=== PATIENT | male | born 1945 | race Caucasian/White ===

== ENCOUNTER → 2017-04-07 | Outpatient (CLI) | payer MEDICARE, OTHER, MEDICAID | END | disposition disaster alternative care site (69) | LOC: GKIC 04-01 12:00 | DX: C61 Malignant neoplasm of prostate (principal); C79.51 Secondary malignant neoplasm of bone; M19.032 Primary osteoarthritis, left wrist; M19.011 Primary osteoarthritis, right shoulder; R97.21 Rising PSA following treatment for malignant neoplasm of prostate; R93.7 Abnormal findings on diagnostic imaging of other parts of musculoskeletal system | CPT/HCPCS: A9580 ==